=== PATIENT | female | born 1980 | race Caucasian/White ===

== ENCOUNTER 2017-10-01 14:03 | Emergency (ER) | payer SELFPAY ==
--- NOTE | 2017-10-01 18:37 | ER ---
Nurse's Notes [facility] Name: Cristina Hancock Age: 37 yrs Sex: Female : 1980 Arrival Date: 10/01/2017 Time: 14:12 Bed 12 Private MD: Diagnosis: Low back pain Presentation: 10/01 14:23 Presenting complaint: Patient states: i was in bed and my back started hurting for a hj week now; the pain moves to my R leg; denies nausea and vomiting and denies fever and chills;. Transition of care: patient was not received from another setting of care. Onset of symptoms was October 01, 2017. Care prior to arrival: None. 14:23 Method Of Arrival: Ambulatory hj 14:23 Acuity: HALEIGH 4 hj Triage Assessment: 14:25 General: Appears in no apparent distress. uncomfortable, Behavior is calm, cooperative, hj appropriate for age. Pain: Complains of pain in left low back and right low back. Musculoskeletal: Circulation, motion, and sensation intact. 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 - Family history:: not pertinent. - Social history:: Smoking status: Patient/guardian denies using tobacco. - Hospitalizations: : No recent hospitalization is reported. - History obtained from: . Screenin:44 Abuse screen: Denies threats or abuse. Denies injuries from another. Nutritional hj screening: No deficits noted. Tuberculosis screening: No symptoms or risk factors identified. Fall Risk None identified. Assessment: 18:20 General: Appears in no apparent distress. comfortable, Behavior is calm, cooperative. iw Neuro: Level of Consciousness is awake, alert, obeys commands, Oriented to person, place, time, situation. Cardiovascular: Patient's skin is warm and dry. Respiratory: Respiratory effort is even, unlabored. Derm: Skin is pink, warm \T\ dry. normal. Musculoskeletal: Range of motion: intact in all extremities. Vital Signs: 14:25 BP 115 / 90; Pulse 94; Resp 18; Temp 98.6(TE); Pulse Ox 100% on R/A; Weight 127.01 kg; hj Height 5 ft. 9 in. (175.26 cm); Pain 9/10; 14:25 Body Mass Index 41.35 (127.01 kg, 175.26 cm) hj ED Course: 14:12 Patient arrived in ED. mr 14:24 Triage completed. hj 14:25 Arm band placed on right wrist. hj 16:24 Sarah Mata FNP is PHCP. kav 16:24 Patric Lyman MD is Attending Physician. kav 17:46 Nora Card, LUÍS is Primary Nurse. iw 18:44 Patient has correct armband on for positive identification. Placed in gown. Bed in low hj position. Call light in reach. 18:45 No provider procedures requiring assistance completed. Patient did not have IV access hj during this emergency room visit. Administered Medications: 18:34 Drug: Cyclobenzaprine 10 mg Route: PO; iw 18:45 Follow up: Response: No adverse reaction hj Outcome: 18:37 Discharge ordered by . kav 18:45 Discharged to home ambulatory. hj 18:45 Condition: stable 18:45 Discharge instructions given to patient, Instructed on discharge instructions, follow up and referral plans. medication usage, Demonstrated understanding of instructions, follow-up care, medications, Prescriptions given X 1. 18:45 Patient left the ED. hj Signatures: Sarah Mata FNP FNP kav Rivera, Maria Nora Card, RN RN iw Franki Hill RN RN hj Corrections: (The following items were deleted from the chart) 14:28 14:25 Pulse 94bpm; Resp 18bpm; Pulse Ox 100% RA; Temp 98.6F Temporal; 127.01 kg; Height hj 5 ft. 9 in.; BMI: 41.3; Pain 9/10; hj
--- NOTE | 2017-10-01 18:38 | EDPHYS ---
Physician Documentation [facility] Name: Cristina Hancock Age: 37 yrs Sex: Female : 1980 Arrival Date: 10/01/2017 Time: 14:12 Bed 12 Private MD: ED Physician Patric Lyman HPI: 10/01 16:24 This 37 yrs old Female presents to ER via Ambulatory with complaints of Back kav Pain. 18:33 The patient presents with pain that is acute. The symptoms are located in the low back. kav Onset: The symptoms/episode began/occurred acutely. The pain does not radiate. Associated signs and symptoms: The patient has no apparent associated signs or symptoms. The problem was sustained when lifting. Modifying factors: The patient symptoms are alleviated by nothing, the patient symptoms are aggravated by any movement, walking. Severity of symptoms: At their worst the symptoms were moderate, just prior to arrival. The patient has not experienced similar symptoms in the past. 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 - Family history:: not pertinent. - Social history:: Smoking status: Patient/guardian denies using tobacco. - Hospitalizations: : No recent hospitalization is reported. - History obtained from: . ROS: 18:34 Constitutional: Negative for fever, chills, and weight loss, Eyes: Negative for injury, kav pain, redness, and discharge, ENT: Negative for injury, pain, and discharge, Neck: Negative for injury, pain, and swelling, Cardiovascular: Negative for chest pain, palpitations, and edema, Respiratory: Negative for shortness of breath, cough, wheezing, and pleuritic chest pain, Abdomen/GI: Negative for abdominal pain, nausea, vomiting, diarrhea, and constipation, : Negative for injury, bleeding, discharge, and swelling, MS/Extremity: Negative for injury and deformity, Skin: Negative for injury, rash, and discoloration, Neuro: Negative for headache, weakness, numbness, tingling, and seizure, Psych: Negative for depression, anxiety, suicide ideation, homicidal ideation, and hallucinations, Allergy/Immunology: Negative for hives, rash, and allergies, Endocrine: Negative for neck swelling, polydipsia, polyuria, polyphagia, and marked weight changes, Hematologic/Lymphatic: Negative for swollen nodes, abnormal bleeding, and unusual bruising. 18:34 Back: Positive for pain at rest, pain with movement, radiated pain. Exam: 18:34 Constitutional: This is a well developed, well nourished patient who is awake, alert, kav and in no acute distress. Head/Face: Normocephalic, atraumatic. Eyes: Pupils equal round and reactive to light, extra-ocular motions intact. Lids and lashes normal. Conjunctiva and sclera are non-icteric and not injected. Cornea within normal limits. Periorbital areas with no swelling, redness, or edema. ENT: Nares patent. No nasal discharge, no septal abnormalities noted. Tympanic membranes are normal and external auditory canals are clear. Oropharynx with no redness, swelling, or masses, exudates, or evidence of obstruction, uvula midline. Mucous membranes moist. Neck: Trachea midline, no thyromegaly or masses palpated, and no cervical lymphadenopathy. Supple, full range of motion without nuchal rigidity, or vertebral point tenderness. No Meningismus. Chest/axilla: Normal chest wall appearance and motion. Nontender with no deformity. No lesions are appreciated. Cardiovascular: Regular rate and rhythm with a normal S1 and S2. No gallops, murmurs, or rubs. Normal PMI, no JVD. No pulse deficits. Respiratory: Lungs have equal breath sounds bilaterally, clear to auscultation and percussion. No rales, rhonchi or wheezes noted. No increased work of breathing, no retractions or nasal flaring. Abdomen/GI: Soft, non-tender, with normal bowel sounds. No distension or tympany. No guarding or rebound. No evidence of tenderness throughout. Skin: Warm, dry with normal turgor. Normal color with no rashes, no lesions, and no evidence of cellulitis. MS/ Extremity: Pulses equal, no cyanosis. Neurovascular intact. Full, normal range of motion. Neuro: Awake and alert, GCS 15, oriented to person, place, time, and situation. Cranial nerves II-XII grossly intact. Motor strength 5/5 in all extremities. Sensory grossly intact. Cerebellar exam normal. Normal gait. Psych: Awake, alert, with orientation to person, place and time. Behavior, mood, and affect are within normal limits. 18:34 Back: pain, that is moderate, ROM is painful, decreased, with extension, normal spinal alignment noted, CVA tenderness, is absent, muscle spasm, is not present, Straight leg raises: of both lower extremities does not illicit pain. Vital Signs: 14:25 BP 115 / 90; Pulse 94; Resp 18; Temp 98.6(TE); Pulse Ox 100% on R/A; Weight 127.01 kg; hj Height 5 ft. 9 in. (175.26 cm); Pain 9/10; 14:25 Body Mass Index 41.35 (127.01 kg, 175.26 cm) hj MDM: 16:25 Patient medically screened. ka 18:34 Data reviewed: vital signs, nurses notes. kav Administered Medications: 18:34 Drug: Cyclobenzaprine 10 mg Route: PO; 18:45 Follow up: Response: No adverse reaction Disposition: 10/02 14:51 Co-signature as Attending Physician, Patric Lyman MD I agree with the assessment and [facility] plan of care. Disposition: 10/01/17 18:37 Discharged to Home. Impression: Low back pain. - Condition is Stable. - Discharge Instructions: Back Injury Prevention, [id number], Back Pain, Adult, [id number], Back Exercises, [id number], Heat Therapy. - Prescriptions for Cyclobenzaprine 10 mg Oral Tablet - take 1 tablet by ORAL route every 8 hours As needed; 30 tablet. - Medication Reconciliation Form, Thank You Letter, Antibiotic Education, Prescription Opioid Use form. - Follow up: Private Physician; When: 1 - 2 days; Reason: If symptoms return. - Problem is new. - Symptoms have improved. Signatures: Patric Lyman MD MD cha Vern, Katherine, FOSTER WINDER FOSTER WINDER Nora Montes RN RN Sergio, Franki, RN RN hj
[2017-10-01] MEDS ORDERED: CYCLOBENZAPRINE 10 MG TAB ONE (18:52)
== END 2017-10-01 18:45 | disposition home or self-care (01) ==
LOC: ER 14:03
DX: Z88.2 Allergy status to sulfonamides; Z88.6 Allergy status to analgesic agent; M54.5 Low back pain
CPT/HCPCS: 99283

== ENCOUNTER 2017-11-21 17:25 | Emergency (ER) | payer BC, SELFPAY ==
[2017-11-21] MEDS ORDERED: CIPROFLOXACIN HCL 500 MG TAB ONE (18:15)
[2017-11-21] MEDS ORDERED: PHENAZOPYRIDINE 100MG TAB PO ONE (18:15)
[2017-11-21] MEDS ORDERED: NITROFURAN MACRO 100 MG CAP PO ONE (18:15)
[2017-11-21 18:35] LABS: Urine Blood NEGATIVE (NEG); Urine Glucose NEGATIVE (NEG); Urine Protein NEGATIVE (NEG); Urine Specific Gravity 1.015 (1.005-1.030); Urine pH 7.5 (5.0-7.0)
[2017-11-21 19:06] LABS: Urine Bacteria >50 /HPF (<20); Urine RBC <5 /HPF (NONE SEEN)
[2017-11-21 19:07] LABS: Urine Culture Reflex Order NOT NEEDED
--- NOTE | 2017-11-21 19:22 | ER ---
Nurse's Notes [facility] Name: Cristina Hancock Age: 37 yrs Sex: Female : 1980 Arrival Date: 11/21/2017 Time: 17:29 Bed 24 Private MD: Diagnosis: Urinary tract infection, site not specified Presentation: 11/21 17:33 Presenting complaint: Patient states: urinary frequency, lower back pain, and pain with la1 intercourse. Transition of care: patient was not received from another setting of care. Onset of symptoms was November 21, 2017. Initial Sepsis Screen: Does the patient meet any 2 criteria? No. Patient's initial sepsis screen is negative. Does the patient have a suspected source of infection? No. Patient's initial sepsis screen is negative. Care prior to arrival: None. 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 - Social history:: Smoking status: Patient/guardian denies using tobacco. Screenin:39 Abuse screen: Denies threats or abuse. Nutritional screening: No deficits noted. tl3 Tuberculosis screening: No symptoms or risk factors identified. Fall Risk None identified. Assessment: 17:39 General: Appears distressed, uncomfortable, obese, well groomed, well developed, well tl3 nourished, Behavior is cooperative, appropriate for age, listless. Pain: Complains of pain in right flank, superpubic area, vaginal. Neuro: Level of Consciousness is awake, alert, obeys commands, Oriented to person, place, time, situation, Appropriate for age. Cardiovascular: Heart tones S1 S2 present. Respiratory: Airway is patent Trachea midline Respiratory effort is even, unlabored, Respiratory pattern is regular, symmetrical. GI: Bowel sounds present X 4 quads. Abd is soft and non tender. : Reports discharge, urgency, urinary frequency, vaginal pain. EENT: No signs and/or symptoms were reported regarding the EENT system. Derm: No signs and/or symptoms reported regarding the dermatologic system. Musculoskeletal: No signs and/or symptoms reported regarding the musculoskeletal system. 18:45 Reassessment: Patient appears in no apparent distress at this time. No changes from tl3 previously documented assessment. Patient and/or family updated on plan of care and expected duration. Pain level reassessed. Patient is alert, oriented x 3, equal unlabored respirations, skin warm/dry/pink. Vital Signs: 17:34 BP 123 / 91; Pulse 87; Resp 19; Temp 97.4; Pulse Ox 100% on R/A; Weight 127.01 kg; la1 Height 5 ft. 9 in. (175.26 cm); 18:45 BP 122 / 86; Pulse 75; Resp 18; Pulse Ox 99% on R/A; tl3 17:34 Body Mass Index 41.35 (127.01 kg, 175.26 cm) la1 ED Course: 17:29 Patient arrived in ED. rg4 17:33 Triage completed. la1 17:34 Arm band placed on left wrist. la1 17:39 Crystal Travis, RN is Primary Nurse. tl3 17:39 Appears restless. Awaiting ED provider evaluation. tl3 17:39 Patient has correct armband on for positive identification. Placed in gown. Bed in low tl3 position. Call light in reach. Side rails up X 1. Warm blanket given. 17:44 Gwen Rios FNP-C is PHCP. snw 17:44 Patric Lyman MD is Attending Physician. snw 18:45 No provider procedures requiring assistance completed. Patient did not have IV access tl3 during this emergency room visit. Administered Medications: 18:16 Drug: Cipro 500 mg Route: PO; tl3 19:54 Follow up: Response: No adverse reaction tl3 18:17 Drug: Pyridium 200 mg Route: PO; tl3 19:55 Follow up: Response: No adverse reaction tl3 18:17 Drug: Macrobid 100 mg Route: PO; tl3 19:55 Follow up: Response: No adverse reaction tl3 Outcome: 18:45 Discharged to home ambulatory. tl3 18:45 Condition: stable 18:45 Discharge instructions given to patient, Instructed on discharge instructions, follow up and referral plans. medication usage, Demonstrated understanding of instructions, follow-up care, medications, Prescriptions given X 4. 19:21 Discharge ordered by . vincent 19:57 Patient left the ED. tl3 Signatures: Gwen Rios, PROJECT CONTROL OFFICER-C PROJECT CONTROL OFFICER-Csnw Jason Ge RN RN carl1 Azalia Castillo rg4 Crystal Travis RN RN tl3 Corrections: (The following items were deleted from the chart) 18:11 18:10 Home Meds: Hydrochlorothiazide Oral [Inactive]; tl3 tl3 18:11 18:10 Home Meds: Tylenol #3 Oral [Inactive]; tl3 tl3
--- NOTE | 2017-11-21 19:22 | EDPHYS ---
Physician Documentation [facility] Name: Cristina Hancock Age: 37 yrs Sex: Female : 1980 Arrival Date: 11/21/2017 Time: 17:29 Bed 24 Private MD: ED Physician Patric Lyman HPI: 11/21 19:54 This 37 yrs old Female presents to ER via Ambulatory with complaints of snw Abdominal Pain, Low Back Pain. 19:54 The patient presents with abdominal pain suprapubic. Onset: The symptoms/episode snw began/occurred suddenly, last night. The symptoms do not radiate. The symptoms are described as constant. Modifying factors: The symptoms are alleviated by nothing, the symptoms are aggravated by pressure, touching the area. Severity of pain: At its worst the pain was moderate severe. It is unknown whether or not the patient has had similar symptoms in the past. It is unknown whether or not the patient has recently seen a physician. denies fever, discharge. 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 - Social history:: Smoking status: Patient/guardian denies using tobacco. ROS: 19:53 Constitutional: Negative for fever, chills, and weight loss, Eyes: Negative for injury, snw pain, redness, and discharge, ENT: Negative for injury, pain, and discharge, Neck: Negative for injury, pain, and swelling, Cardiovascular: Negative for chest pain, palpitations, and edema, Respiratory: Negative for shortness of breath, cough, wheezing, and pleuritic chest pain, Abdomen/GI: Negative for abdominal pain, nausea, vomiting, diarrhea, and constipation, Back: Negative for injury and pain, : Negative for injury, bleeding, discharge, and swelling, + burning on urination, painful intercourse, suprapubic pain MS/Extremity: Negative for injury and deformity, Skin: Negative for injury, rash, and discoloration, Neuro: Negative for headache, weakness, numbness, tingling, and seizure. Exam: 19:50 Constitutional: This is a well developed, well nourished patient who is awake, alert, snw and in no acute distress. Head/Face: Normocephalic, atraumatic. Eyes: Pupils equal round and reactive to light, extra-ocular motions intact. Lids and lashes normal. Conjunctiva and sclera are non-icteric and not injected. Cornea within normal limits. Periorbital areas with no swelling, redness, or edema. ENT: Nares patent. No nasal discharge, no septal abnormalities noted. Tympanic membranes are normal and external auditory canals are clear. Oropharynx with no redness, swelling, or masses, exudates, or evidence of obstruction, uvula midline. Mucous membranes moist. Neck: Trachea midline, no thyromegaly or masses palpated, and no cervical lymphadenopathy. Supple, full range of motion without nuchal rigidity, or vertebral point tenderness. No Meningismus. Chest/axilla: Normal chest wall appearance and motion. Nontender with no deformity. No lesions are appreciated. Cardiovascular: Regular rate and rhythm with a normal S1 and S2. No gallops, murmurs, or rubs. Normal PMI, no JVD. No pulse deficits. Respiratory: Lungs have equal breath sounds bilaterally, clear to auscultation and percussion. No rales, rhonchi or wheezes noted. No increased work of breathing, no retractions or nasal flaring. Back: No spinal tenderness. No costovertebral tenderness. Full range of motion. Skin: Warm, dry with normal turgor. Normal color with no rashes, no lesions, and no evidence of cellulitis. MS/ Extremity: Pulses equal, no cyanosis. Neurovascular intact. Full, normal range of motion. Neuro: Awake and alert, GCS 15, oriented to person, place, time, and situation. Cranial nerves II-XII grossly intact. Motor strength 5/5 in all extremities. Sensory grossly intact. Cerebellar exam normal. Normal gait. 19:50 Abdomen/GI: Inspection: abdomen appears normal, Bowel sounds: normal, Palpation: mild abdominal tenderness, in the suprapubic area. Vital Signs: 17:34 BP 123 / 91; Pulse 87; Resp 19; Temp 97.4; Pulse Ox 100% on R/A; Weight 127.01 kg; la1 Height 5 ft. 9 in. (175.26 cm); 18:45 BP 122 / 86; Pulse 75; Resp 18; Pulse Ox 99% on R/A; tl3 17:34 Body Mass Index 41.35 (127.01 kg, 175.26 cm) la1 MDM: 17:44 Patient medically screened. snw 19:42 Data reviewed: vital signs, nurses notes. Data interpreted: Pulse oximetry: on room air snw is 100 %. Interpretation: normal. Counseling: I had a detailed discussion with the patient and/or guardian regarding: the historical points, exam findings, and any diagnostic results supporting the discharge/admit diagnosis, the presence of at least one elevated blood pressure reading (>120/80) during this emergency department visit, lab results, the need for outpatient follow up, to return to the emergency department if symptoms worsen or persist or if there are any questions or concerns that arise at home. Special discussion: Based on the patient's Hx, exam, and Dx evaluation, there is no indication for emergent surgery or inpatient Tx. It is understood by the patient/guardian that if the Sx's persist or worsen they need to return immediately for re-evaluation. Based on the history and exam findings, there is no indication for further emergent testing or inpatient evaluation. I discussed with the patient/guardian the need to see the OB Gyne specialist for further evaluation of the symptoms. I discussed with the patient/guardian the need to see the primary care provider for further evaluation of the symptoms. 11/21 17:45 Order name: Urine Culture snw 11/21 17:45 Order name: Urine Microscopic Only; Complete Time: 19:21 snw 11/21 18:02 Order name: Urine Dipstick--Ancillary (enter results); Complete Time: 18:35 ag 11/21 17:45 Order name: Urine Dipstick-Ancillary (obtain specimen); Complete Time: 18:12 snw Administered Medications: 18:16 Drug: Cipro 500 mg Route: PO; tl3 19:54 Follow up: Response: No adverse reaction tl3 18:17 Drug: Pyridium 200 mg Route: PO; tl3 19:55 Follow up: Response: No adverse reaction tl3 18:17 Drug: Macrobid 100 mg Route: PO; tl3 19:55 Follow up: Response: No adverse reaction tl3 Disposition: 11/21/17 19:21 Discharged to Home. Impression: Urinary tract infection, site not specified. - Condition is Stable. - Discharge Instructions: Urinary Tract Infection. - Prescriptions for Macrobid 100 mg Oral Capsule - take 1 capsule by ORAL route every 12 hours for 10 days; 20 capsule. Cipro 500 mg Oral Tablet - take 1 tablet by ORAL route every 12 hours for 7 days; 14 tablet. - Medication Reconciliation Form, Thank You Letter, Antibiotic Education, Prescription Opioid Use form. - Follow up: Private Physician; When: 2 - 3 days; Reason: Recheck today's complaints, Continuance of care, Re-evaluation by your physician. Follow up: Emergency Department; When: As needed; Reason: Worsening of condition. Addendum: 11/23/2017 09:07 Co-signature as Attending Physician, Patric Lyman MD I agree with the assessment and [facility] plan of care. Signatures: Dispatcher [employer] Patric Marie MD MD cha Therrien, Shelly, PRESS PULLER-C PRESS PULLER-Csnw Jason Ge RN RN la1 Crystal Travis, LUÍS RN tl3 Corrections: (The following items were deleted from the chart) 11/21 18:11 18:10 Home Meds: Hydrochlorothiazide Oral [Inactive]; tl3 tl3 18:11 18:10 Home Meds: Tylenol #3 Oral [Inactive]; tl3 tl3 18:12 17:45 Urine Test ordered. snw tl3 19:57 19:21 11/21/2017 19:21 Discharged to Home. Impression: Urinary tract infection, site tl3 not specified. Condition is Stable. Forms are Medication Reconciliation Form, Thank You Letter, Antibiotic Education, Prescription Opioid Use. Follow up: Private Physician; When: 2 - 3 days; Reason: Recheck today's complaints, Continuance of care, Re-evaluation by your physician. Follow up: Emergency Department; When: As needed; Reason: Worsening of condition. snw
== END 2017-11-21 19:57 | disposition home or self-care (01) ==
LOC: ER 17:25
DX: N39.0 Urinary tract infection, site not specified (principal); I10 Essential (primary) hypertension; Z88.2 Allergy status to sulfonamides; Z88.6 Allergy status to analgesic agent; Z88.8 Allergy status to other drugs, medicaments and biological substances; Z91.048 Other nonmedicinal substance allergy status
CPT/HCPCS: 81003; 81015; 87086; 87088; 99283

== ENCOUNTER 2018-01-31 17:19 | Emergency (ER) | payer SELFPAY ==
[2018-01-31] MEDS ORDERED: HYDROCODONE/APAP 5/325 MG TAB ONE (17:37)
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
[2018-01-31] MEDS ORDERED: CYCLOBENZAPRINE 10 MG TAB ONE (19:06)
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
== END 2018-01-31 20:05 | disposition home or self-care (01) ==
LOC: ER 17:19
DX: S13.4XXA Sprain of ligaments of cervical spine, initial encounter (principal); S33.5XXA Sprain of ligaments of lumbar spine, initial encounter; V49.59XA Passenger injured in collision with other motor vehicles in traffic accident, initial encounter; Z88.2 Allergy status to sulfonamides; Z88.5 Allergy status to narcotic agent; Z88.6 Allergy status to analgesic agent; Z88.8 Allergy status to other drugs, medicaments and biological substances; Z91.048 Other nonmedicinal substance allergy status; I10 Essential (primary) hypertension
CPT/HCPCS: 70450; 72100; 72125; 99284

== ENCOUNTER 2018-02-13 19:33 | Emergency (ER) | payer SELFPAY ==
--- NOTE | 2018-02-13 21:09 | RAD REPORT ---
EXAM DESCRIPTION: VAS - Extrem Venous W Compress [place] - 02/13/2018 9:03 pm CLINICAL HISTORY: Pain;Swelling Bilateral leg edema and swelling. COMPARISON: No comparisons TECHNIQUE: Real-time sonographic interrogation of the left and right lower extremity deep venous sys tems was performed. FINDINGS: Normal compressibility, flow augmentation, phasic flow and spontaneous flow is identified in both the left and right lower extremity deep venous systems. IMPRESSION: No sonographic evidence of left or right lower extremity deep venous thrombosis.
--- NOTE | 2018-02-13 21:51 | RAD REPORT ---
EXAM DESCRIPTION: VAS - Lower Extremity Arterial Bilat - 02/13/2018 9:38 pm CLINICAL HISTORY: PAIN COMPARISON: None Claudication. TECHNIQUE: Bilateral lower extremity arterial Doppler examination was performed with favian bashir FINDINGS: Symmetric brachial pressure measurements are noted. Triphasic waveforms are seen throughout both lower extremity arterial systems to the level of the shakira salis pedis arteries. No stenosis or occlusion is identified. IMPRESSION: No evidence of significant peripheral vascular disease.
[2018-02-13] MEDS ORDERED: HYDROCODONE/APAP 10/325 TAB ONE (22:19)
--- NOTE | 2018-02-13 22:20 | ER ---
Nurse's Notes [facility] Name: Cristina Hancock Age: 37 yrs Sex: Female : 1980 Arrival Date: 02/13/2018 Time: 19:36 Bed 7 Private MD: None, None Diagnosis: Edema, unspecified Presentation: 02/13 19:49 Presenting complaint: Patient states: "My feet are swollen really bad and I have a knot aj1 on my right ankle. I have pain that shoots from my legs all the way from my ankles to my feet. I've had a DVT before so I just want to make sure that I don't have that." Reports swelling and pain to bilateral legs. States that this has happened before, but her pain has never been this bad before. Transition of care: patient was not received from another setting of care. Onset of symptoms was February 10, 2018. Risk Assessment: Do you want to hurt yourself or someone else? Patient reports no desire to harm self or others. Initial Sepsis Screen: Does the patient meet any 2 criteria? No. Patient's initial sepsis screen is negative. Does the patient have a suspected source of infection? No. Patient's initial sepsis screen is negative. Care prior to arrival: None. 19:49 Method Of Arrival: Ambulatory aj1 19:49 Acuity: [place] 3 aj1 Triage Assessment: 19:52 General: Appears in no apparent distress. uncomfortable, Behavior is calm, cooperative, aj1 appropriate for age. Pain: Complains of pain in right leg and left leg Pain currently is 9 out of 10 on a pain scale. Neuro: Level of Consciousness is awake, alert, obeys commands. Cardiovascular: Patient's skin is warm and dry. Respiratory: Airway is patent Respiratory effort is even, unlabored, Respiratory pattern is regular, symmetrical. Musculoskeletal: Swelling present in right leg and left leg. 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 - Social history:: Smoking status: Patient/guardian denies using tobacco. - Ebola Screening: : Patient denies travel to an Ebola-affected area in the 21 days before illness onset. - Family history:: not pertinent. - Hospitalizations: : No recent hospitalization is reported. Screenin:49 Abuse screen: Denies threats or abuse. Denies injuries from another. Nutritional lp1 screening: No deficits noted. Tuberculosis screening: No symptoms or risk factors identified. Fall Risk None identified. Assessment: 20:45 General: Appears uncomfortable, Behavior is appropriate for age. Pain: Complains of lp1 pain in right ankle Pain currently is 9 out of 10 on a pain scale. Quality of pain is described as sharp, Pain began 2-3 days ago. Aggravated by increased activity. Neuro: Level of Consciousness is awake, alert, obeys commands. Cardiovascular: Patient's skin is warm and dry. Respiratory: Respiratory effort is even, unlabored. GI: No signs and/or symptoms were reported involving the gastrointestinal system. : No signs and/or symptoms were reported regarding the genitourinary system. EENT: No signs and/or symptoms were reported regarding the EENT system. Derm: Skin is pink, warm \\T\\ dry. Musculoskeletal: Range of motion: intact in all extremities. 20:49 Reassessment: Ultrasound at bedside. lp1 22:09 Reassessment: Patient appears in no apparent distress at this time. Patient and/or aa1 family updated on plan of care and expected duration. Pain level reassessed. Patient is alert, oriented x 3, equal unlabored respirations, skin warm/dry/pink. Awaiting provider reassessment. 22:37 Reassessment: Patient appears in no apparent distress at this time. Patient is alert, aa1 oriented x 3, equal unlabored respirations, skin warm/dry/pink. Discussed d/c \\T\\ f/u instructions with pt; denies questions or concerns at this time. Vital Signs: 19:52 BP 122 / 93; Pulse 96; Resp 18; Temp 98.4(TE); Pulse Ox 100% on R/A; aj1 19:54 Weight 142.88 kg; aj1 20:39 BP 128 / 75 LA Sitting (auto/reg); Pulse 82 LA; Resp 18 S; Pulse Ox 100% on R/A; rg2 22:09 BP 117 / 89; Pulse 81; Resp 18; Pulse Ox 100% on R/A; aa1 ED Course: 19:36 Patient arrived in ED. mr 19:36 None, None is Private Physician. mr 19:51 Triage completed. aj1 19:52 Arm band placed on. aj1 20:36 Ariadna Goddard, LUÍS is Primary Nurse. aa1 20:38 Ezequiel Hilario MD is Attending Physician. rn 21:00 Patient has correct armband on for positive identification. Bed in low position. Call aa1 light in reach. Pulse ox on. NIBP on. 21:01 Extrem Venous W Compression [place] US In Process Unspecified. EDMS 21:01 Ultrasound completed. Patient tolerated well. sg3 21:38 Lower Extremity Arterial Bilat US In Process Unspecified. EDMS 22:39 No provider procedures requiring assistance completed. Patient did not have IV access aa1 during this emergency room visit. Administered Medications: 22:17 Drug: [place] 10 mg-325 mg 1 tabs Route: PO; aa1 22:37 Follow up: Response: No adverse reaction; Medication administered at discharge. aa1 Outcome: 22:19 Discharge ordered by . rn 22:39 Discharged to home ambulatory, with friend. aa1 22:39 Condition: good 22:39 Discharge instructions given to patient, Instructed on discharge instructions, follow up and referral plans. medication usage, Demonstrated understanding of instructions, follow-up care, medications. 22:39 Patient left the ED. aa1 Signatures: Dispatcher [employer] EDMS Yakov De La Torre rg2 nAa Garcias, RN RN aj1 Ariadna Goddard, RN RN aa1 Anabella Ybarra mr Ezequiel Hilario MD MD rn Pena, Laura, RN RN ada1 Leslie Falcon sg3
--- NOTE | 2018-02-13 22:20 | EDPHYS ---
Physician Documentation [facility] Name: Cristina Hancock Age: 37 yrs Sex: Female : 1980 Arrival Date: 02/13/2018 Time: 19:36 Bed 7 Private MD: None, None ED Physician Ezequiel Hilario HPI: 02/13 22:16 This 37 yrs old Female presents to ER via Ambulatory with complaints of Ankle rn Swelling. 22:16 The patient presents with pain, swelling. The complaints affect the left ankle, right rn ankle. Onset: The symptoms/episode began/occurred at an unknown time. Associated signs and symptoms: Pertinent negatives: fever, rash, weakness. Severity of symptoms: At their worst the symptoms were mild, in the emergency department the symptoms are unchanged. The patient has experienced similar episodes in the past, chronically. Reports swelling for weeks/months, both legs, + hx of dvt, no blood thinners, denies trauma, reports pain worse over last 2 days. . 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 - Social history:: Smoking status: Patient/guardian denies using tobacco. - Ebola Screening: : Patient denies travel to an Ebola-affected area in the 21 days before illness onset. - Family history:: not pertinent. - Hospitalizations: : No recent hospitalization is reported. ROS: 22:16 Constitutional: Negative for fever, chills, and weight loss, Eyes: Negative for injury, rn pain, redness, and discharge, Cardiovascular: Negative for chest pain, palpitations Respiratory: Negative for shortness of breath, cough, wheezing, and pleuritic chest pain, Abdomen/GI: Negative for abdominal pain, nausea, vomiting, diarrhea, and constipation, MS/Extremity: Negative for injury and deformity, + swelling of bilateral ankles Skin: Negative for injury, rash, and discoloration, Neuro: Negative for headache, weakness, numbness, tingling, and seizure. Exam: 22:16 Constitutional: This is a well developed, well nourished patient who is awake, alert, rn and in no acute distress. Head/Face: Normocephalic, atraumatic. Eyes: Pupils equal round and reactive to light, extra-ocular motions intact. Lids and lashes normal. Conjunctiva and sclera are non-icteric and not injected. Cornea within normal limits. Periorbital areas with no swelling, redness, or edema. Cardiovascular: Regular rate and rhythm with a normal S1 and S2. No gallops, murmurs, or rubs. Normal PMI, no JVD. No pulse deficits. Respiratory: Lungs have equal breath sounds bilaterally, clear to auscultation and percussion. No rales, rhonchi or wheezes noted. No increased work of breathing, no retractions or nasal flaring. Skin: Warm, dry with normal turgor. Normal color with no rashes, no lesions, and no evidence of cellulitis. MS/ Extremity: Pulses equal but diminished bilateral distal pulses, no skin changes, + mild edema/swelling about bilateral ankles, no signs of cellulitis Neuro: Awake and alert, GCS 15, oriented to person, place, time, and situation. Cranial nerves II-XII grossly intact. Motor strength 5/5 in all extremities. Sensory grossly intact. Cerebellar exam normal. Normal gait. Vital Signs: 19:52 BP 122 / 93; Pulse 96; Resp 18; Temp 98.4(TE); Pulse Ox 100% on R/A; aj1 19:54 Weight 142.88 kg; aj1 20:39 BP 128 / 75 LA Sitting (auto/reg); Pulse 82 LA; Resp 18 S; Pulse Ox 100% on R/A; rg2 22:09 BP 117 / 89; Pulse 81; Resp 18; Pulse Ox 100% on R/A; aa1 MDM: 20:38 Patient medically screened. rn 22:16 Differential diagnosis: dependant edema, arterial insufficiency, venous insufficiency, rn DVT. Data reviewed: vital signs, nurses notes, radiologic studies, and as a result, I will discharge patient. Counseling: I had a detailed discussion with the patient and/or guardian regarding: the historical points, exam findings, and any diagnostic results supporting the discharge/admit diagnosis, radiology results, the need for outpatient follow up, to return to the emergency department if symptoms worsen or persist or if there are any questions or concerns that arise at home. Special discussion: I discussed with the patient/guardian in detail that at this point there is no indication for admission to the hospital. It is understood, however, that if the symptoms persist or worsen the patient needs to return immediately for re-evaluation. 02/13 20:28 Order name: Extrem Venous W Compression [place] US; Complete Time: 22:13 rn 02/13 20:45 Order name: Lower Extremity Arterial Bilat US; Complete Time: 22:13 rn Administered Medications: 22:17 Drug: Hillman 10 mg-325 mg 1 tabs Route: PO; aa1 22:37 Follow up: Response: No adverse reaction; Medication administered at discharge. aa1 Disposition: 02/13/18 22:19 Discharged to Home. Impression: Edema, unspecified. - Condition is Stable. - Discharge Instructions: Edema, Peripheral Edema. - Medication Reconciliation Form, Thank You Letter, Antibiotic Education, Prescription Opioid Use form. - Follow up: Private Physician; When: As needed; Reason: Recheck today's complaints, Re-evaluation by your physician. - Problem is an ongoing problem. - Symptoms have improved. Signatures: Dispatcher [employer] EDAna Robertson RN RN aj1 Ariadna Goddard RN RN aa1 Ezequiel Hilario MD MD government program manager: (The following items were deleted from the chart) 22:39 22:19 02/13/2018 22:19 Discharged to Home. Impression: Edema, unspecified. Condition is aa1 Stable. Forms are Medication Reconciliation Form, Thank You Letter, Antibiotic Education, Prescription Opioid Use. Follow up: Private Physician; When: As needed; Reason: Recheck today's complaints, Re-evaluation by your physician. Problem is an ongoing problem. Symptoms have improved. rn
== END 2018-02-13 22:39 | disposition home or self-care (01) ==
LOC: ER 19:33
DX: M25.472 Effusion, left ankle (principal); Z88.2 Allergy status to sulfonamides; Z88.6 Allergy status to analgesic agent
CPT/HCPCS: 93925; 93970; 99283

== ENCOUNTER 2018-03-12 19:27 | Emergency (ER) | payer SELFPAY ==
--- NOTE | 2018-03-12 20:23 | EDPHYS ---
Physician Documentation [facility] Name: Cristina Hancock Age: 38 yrs Sex: Female : 1980 Arrival Date: 03/12/2018 Time: 19:29 Bed 23 Private MD: ED Physician Matthieu Harris HPI: 03/12 19:51 This 38 yrs old Female presents to ER via Ambulatory with complaints of Fall jr8 Injury, Ankle Injury. 19:51 Details of fall: The patient fell from an upright position, while standing, while jr8 walking. Onset: The symptoms/episode began/occurred acutely, today. Associated injuries: The patient sustained left ankle and foot. Severity of symptoms: At their worst the symptoms were mild, in the emergency department the symptoms are unchanged. It is unknown whether or not the patient has had similar symptoms in the past. It is unknown whether or not the patient has recently seen a physician. Stated that she was walking and mis-stepped. Pain to foot and ankle on left side . 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 - Social history:: Smoking status: Patient/guardian denies using tobacco. - Ebola Screening: : Patient negative for fever greater than or equal to 101.5 degrees Fahrenheit, and additional compatible Ebola Virus Disease symptoms Patient denies exposure to infectious person Patient denies travel to an Ebola-affected area in the 21 days before illness onset No symptoms or risks identified at this time. ROS: 19:51 Eyes: Negative for injury, pain, redness, and discharge, ENT: Negative for injury, jr8 pain, and discharge, Neck: Negative for injury, pain, and swelling, Cardiovascular: Negative for chest pain, palpitations, and edema, Respiratory: Negative for shortness of breath, cough, wheezing, and pleuritic chest pain, Abdomen/GI: Negative for abdominal pain, nausea, vomiting, diarrhea, and constipation, Back: Negative for injury and pain, Skin: Negative for injury, rash, and discoloration, Neuro: Negative for headache, weakness, numbness, tingling, and seizure. 19:51 MS/extremity: Positive for decreased range of motion, pain, tenderness, of the left dorsal foot and ankle. Exam: 19:51 Cardiovascular: Regular rate and rhythm with a normal S1 and S2. No gallops, murmurs, jr8 or rubs. Normal PMI, no JVD. No pulse deficits. Respiratory: Lungs have equal breath sounds bilaterally, clear to auscultation and percussion. No rales, rhonchi or wheezes noted. No increased work of breathing, no retractions or nasal flaring. Skin: Warm, dry with normal turgor. Normal color with no rashes, no lesions, and no evidence of cellulitis. Neuro: Awake and alert, GCS 15, oriented to person, place, time, and situation. Cranial nerves II-XII grossly intact. Motor strength 5/5 in all extremities. Sensory grossly intact. Cerebellar exam normal. Normal gait. 19:51 Musculoskeletal/extremity: Extremities: grossly normal except: noted in the left dorsal foot: pain, tenderness, noted in the left ankle: pain, tenderness, ROM: intact in all extremities, full active range of motion, full passive range of motion, limited active range of motion due to pain, limited passive range of motion due to pain, Circulation is intact in all extremities. Sensation intact. Vital Signs: 19:54 BP 137 / 90; Pulse 99; Resp 18; Temp 98.9(TE); Pulse Ox 100% on R/A; Weight 144.7 kg aj1 (R); Height 5 ft. 9 in. (175.26 cm) (R); 20:51 BP 135 / 73; Pulse 101; Resp 18; Pulse Ox 97% ; Pain 4/10; cr4 19:54 Body Mass Index 47.11 (144.70 kg, 175.26 cm) aj1 MDM: 19:40 Patient medically screened. jr8 20:22 Data reviewed: vital signs, nurses notes, radiologic studies, plain films, and as a jr8 result, I will discharge patient. Data interpreted: Pulse oximetry: on room air is 100 %. Interpretation: normal. Counseling: I had a detailed discussion with the patient and/or guardian regarding: the historical points, exam findings, and any diagnostic results supporting the discharge/admit diagnosis, radiology results, the need for outpatient follow up, a orthopedic surgeon, to return to the emergency department if symptoms worsen or persist or if there are any questions or concerns that arise at home. 03/12 19:42 Order name: XRAY Ankle LEFT 3 view jr8 03/12 19:42 Order name: XRAY Foot LEFT 3 View jr8 03/12 20:23 Order name: Lacho wrap-joint jr8 Administered Medications: No medications were administered Disposition: 03/12/18 20:22 Discharged to Home. Impression: Sprain of ankle. - Condition is Stable. - Discharge Instructions: Ankle Sprain. - Medication Reconciliation Form, Thank You Letter, Antibiotic Education, Prescription Opioid Use form. - Follow up: Private Physician; When: 5 - 6 days; Reason: Recheck today's complaints, Continuance of care, Re-evaluation by your physician. - Problem is new. - Symptoms have improved. Addendum: 03/15/2018 10:17 Co-signature as Attending Physician, Matthieu Hraris MD. g s Signatures: Dispatcher [employer] EDMS Ana Garcias RN RN aj1 Jeanna Alaniz RN RN cr4 Timbo Trammell PA PA jr8 Matthieu Harris MD MD gs Corrections: (The following items were deleted from the chart) 03/12 20:55 20:22 03/12/2018 20:22 Discharged to Home. Impression: Sprain of ankle. Condition is cr4 Stable. Forms are Medication Reconciliation Form, Thank You Letter, Antibiotic Education, Prescription Opioid Use. Follow up: Private Physician; When: 5 - 6 days; Reason: Recheck today's complaints, Continuance of care, Re-evaluation by your physician. Problem is new. Symptoms have improved. jr8
--- NOTE | 2018-03-12 20:23 | ER ---
Nurse's Notes [facility] Name: Cristina Hancock Age: 38 yrs Sex: Female : 1980 Arrival Date: 03/12/2018 Time: 19:29 Bed 23 Private MD: Diagnosis: Sprain of ankle Presentation: 03/12 19:40 Presenting complaint: Patient states: Patient states she fell in a parking lot at 0100 cr4 am. She heard her left ankle pop. She has taken tylenol, asprin and applied an dalton bandage but continues to have burning, aching pain radiating from left lateral ankle to inner ankle. Care prior to arrival: None. Mechanism of Injury: Fall fell while walking. Trauma event details: Injury occurred: March 13, 2018 Injury occurred at: 01:00. 19:40 Method Of Arrival: Ambulatory cr4 19:40 Acuity: HALE[place] 4 aj1 19:50 Transition of care: patient was not received from another setting of care. Onset of aj1 symptoms was March 12, 2018. Risk Assessment: Do you want to hurt yourself or someone else? Patient reports no desire to harm self or others. Initial Sepsis Screen: Does the patient meet any 2 criteria? No. Patient's initial sepsis screen is negative. Does the patient have a suspected source of infection? No. Patient's initial sepsis screen is negative. Triage Assessment: 19:54 General: Appears in no apparent distress. uncomfortable, Behavior is calm, cooperative, aj1 agitated. Neuro: Level of Consciousness is awake, alert, obeys commands. Cardiovascular: Patient's skin is warm and dry. Respiratory: Airway is patent Respiratory effort is even, unlabored, Respiratory pattern is regular, symmetrical. 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 - Social history:: Smoking status: Patient/guardian denies using tobacco. - Ebola Screening: : Patient negative for fever greater than or equal to 101.5 degrees Fahrenheit, and additional compatible Ebola Virus Disease symptoms Patient denies exposure to infectious person Patient denies travel to an Ebola-affected area in the 21 days before illness onset No symptoms or risks identified at this time. Screenin:52 Abuse screen: Denies threats or abuse. Nutritional screening: No deficits noted. cr4 Tuberculosis screening: No symptoms or risk factors identified. Fall Risk None identified. Assessment: 19:47 General: Appears uncomfortable, obese, well groomed, Behavior is cooperative. Neuro:. cr4 EENT: No deficits noted. Cardiovascular: No deficits noted. Respiratory: No deficits noted. Airway is patent Trachea midline Respiratory effort is even, unlabored. GI: Patient currently denies nausea, pain, vomiting. : Denies burning with urination, pain. Derm: No deficits noted. Musculoskeletal: Tenderness present in left ankle, top of left ankle. Reports pain in left ankle, since 0100. Pain is 10 out of 10 on a pain scale. 20:52 Reassessment: No changes from previously documented assessment. Patient and/or family cr4 updated on plan of care and expected duration. Pain level reassessed. Patient is alert, oriented x 3, equal unlabored respirations, skin warm/dry/pink. Vital Signs: 19:54 BP 137 / 90; Pulse 99; Resp 18; Temp 98.9(TE); Pulse Ox 100% on R/A; Weight 144.7 kg aj1 (R); Height 5 ft. 9 in. (175.26 cm) (R); 20:51 BP 135 / 73; Pulse 101; Resp 18; Pulse Ox 97% ; Pain 4/10; cr4 19:54 Body Mass Index 47.11 (144.70 kg, 175.26 cm) aj1 ED Course: 19:29 Patient arrived in ED. am2 19:35 Timbo Trammell PA is PHCP. jr8 19:35 Matthieu Harris MD is Attending Physician. jr8 19:46 Triage completed. cr4 19:52 Arm band placed on Patient placed in an exam room. aj1 20:17 X-ray completed. Portable x-ray completed in exam room. Patient tolerated procedure az well. 20:23 XRAY Ankle LEFT 3 view In Process Unspecified. EDMS 20:23 XRAY Foot LEFT 3 View In Process Unspecified. EDMS 20:52 Patient has correct armband on for positive identification. Bed in low position. Side cr4 rails up X2. 20:52 No provider procedures requiring assistance completed. Patient did not have IV access cr4 during this emergency room visit. Administered Medications: No medications were administered Outcome: 20:22 Discharge ordered by . yudith 20:52 Discharged to home ambulatory. cr4 20:52 Condition: stable 20:52 Discharge instructions given to patient, Instructed on discharge instructions, follow up and referral plans. Demonstrated understanding of instructions, follow-up care. 20:55 Patient left the ED. cr4 Signatures: Dispatcher [employer] EDAna Robertson RN RN aj1 Jeanna Alaniz RN RN cr4 Timbo Trammell PA PA jr8 Dorothy Nam Araceli az Corrections: (The following items were deleted from the chart) 19:55 19:40 Acuity: HALEIGH 3 cr4 aj1
--- NOTE | 2018-03-12 20:37 | RAD REPORT ---
EXAM DESCRIPTION: RAD - Ankle Left 3 View -03/12/2018 8:23 pm CLINICAL HISTORY: Left ankle pain status post injury FINDINGS: No fracture or dislocation is seen. Large plantar calcaneal spur is present
--- NOTE | 2018-03-12 20:39 | RAD REPORT ---
EXAM DESCRIPTION: RAD - Foot Left 3 View - 03/12/2018 8:23 pm CLINICAL HISTORY: Left Foot pain FINDINGS: No fracture or dislocation is seen.
== END 2018-03-12 20:55 | disposition home or self-care (01) ==
LOC: ER 19:27
DX: S93.402A Sprain of unspecified ligament of left ankle, initial encounter (principal); W18.30XA Fall on same level, unspecified, initial encounter; Y93.01 Activity, walking, marching and hiking; Y92.9 Unspecified place or not applicable; Z88.2 Allergy status to sulfonamides; Z88.8 Allergy status to other drugs, medicaments and biological substances; I10 Essential (primary) hypertension
CPT/HCPCS: 99283

== ENCOUNTER 2018-06-14 16:39 | Emergency (ER) | payer SELFPAY ==
--- NOTE | 2018-06-14 18:17 | RAD REPORT ---
EXAM DESCRIPTION: US - Extrem Venous W Compress [place] - 06/14/2018 6:12 pm CLINICAL HISTORY: SWELLING Bilateral leg edema and swelling. COMPARISON: Extrem Venous W Compress [place] dated 02/13/2018 TECHNIQUE: Real-time sonographic interrogation of the left and right lower extremity deep venous sys tems was performed. FINDINGS: Normal compressibility, flow augmentation, phasic flow and spontaneous flow is identified in both the left and right lower extremity deep venous systems. IMPRESSION: No sonographic evidence of left or right lower extremity deep venous thrombosis.
--- NOTE | 2018-06-14 18:24 | RAD REPORT ---
EXAM DESCRIPTION: RAD - Chest Pa And Lat (2 Views) - 06/14/2018 6:18 pm CLINICAL HISTORY: SWELLING Chest pain. COMPARISON: Chest Single View dated 06/15/2017; Chest Pa And Lat (2 Views) dated 04/25/2017; Chest Si ngle View dated 04/21/2017 FINDINGS: The lungs are clear. The heart is upper limit of normal in size. No displaced fractures. IMPRESSION: No acute or concerning finding suspected.
[2018-06-14] MEDS ORDERED: ASPIRIN 81 MG CHEWABLE TABLET ONE (18:44)
[2018-06-14] MEDS ORDERED: hydroCHLOROthiazide 25 MG TAB ONE (18:45)
--- NOTE | 2018-06-14 18:49 | EDPHYS ---
Physician Documentation [facility] Name: Cristina Hancock Age: 38 yrs Sex: Female : 1980 Arrival Date: 06/14/2018 Time: 16:42 Bed 12 Private MD: None, None ED Physician Matthieu Harris HPI: 06/14 17:48 This 38 yrs old Female presents to ER via Ambulatory with complaints of Feet snw Swelling, Leg Swelling. 17:48 pt c/o bilateral lower ext pain and swelling post driving from [place]. . Onset: The snw symptoms/episode began/occurred suddenly. Severity of symptoms: At their worst the symptoms were severe pt crying in triage. The patient has experienced similar episodes in the past. It is unknown whether or not the patient has recently seen a physician. supposed to take diuretics and does not. 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 - Social history:: Smoking status: Patient/guardian denies using tobacco. - Ebola Screening: : Patient denies exposure to infectious person Patient denies travel to an Ebola-affected area in the 21 days before illness onset. ROS: 17:48 Eyes: Negative for injury, pain, redness, and discharge, ENT: Negative for injury, snw pain, and discharge, Neck: Negative for injury, pain, and swelling, Cardiovascular: Negative for chest pain, palpitations, and edema, Respiratory: Negative for shortness of breath, cough, wheezing, and pleuritic chest pain, Abdomen/GI: Negative for abdominal pain, nausea, vomiting, diarrhea, and constipation, Back: Negative for injury and pain, : Negative for injury, bleeding, discharge, and swelling, Skin: Negative for injury, rash, and discoloration, Neuro: Negative for headache, weakness, numbness, tingling, and seizure. 17:48 Constitutional: Positive for body aches. 17:48 MS/extremity: Positive for decreased range of motion, pain, swelling, of the bilateral lower ext. Exam: 17:50 Head/Face: Normocephalic, atraumatic. Eyes: Pupils equal round and reactive to light, snw extra-ocular motions intact. Lids and lashes normal. Conjunctiva and sclera are non-icteric and not injected. Cornea within normal limits. Periorbital areas with no swelling, redness, or edema. ENT: Nares patent. No nasal discharge, no septal abnormalities noted. Tympanic membranes are normal and external auditory canals are clear. Oropharynx with no redness, swelling, or masses, exudates, or evidence of obstruction, uvula midline. Mucous membranes moist. Neck: Trachea midline, no thyromegaly or masses palpated, and no cervical lymphadenopathy. Supple, full range of motion without nuchal rigidity, or vertebral point tenderness. No Meningismus. Chest/axilla: Normal chest wall appearance and motion. Nontender with no deformity. No lesions are appreciated. 17:50 Respiratory: Lungs have equal breath sounds bilaterally, clear to auscultation and percussion. No rales, rhonchi or wheezes noted. No increased work of breathing, no retractions or nasal flaring. Abdomen/GI: Soft, non-tender, with normal bowel sounds. No distension or tympany. No guarding or rebound. No evidence of tenderness throughout. Back: No spinal tenderness. No costovertebral tenderness. Full range of motion. Skin: Warm, dry with normal turgor. Normal color with no rashes, no lesions, and no evidence of cellulitis. Neuro: Awake and alert, GCS 15, oriented to person, place, time, and situation. Cranial nerves II-XII grossly intact. Motor strength 5/5 in all extremities. Sensory grossly intact. Cerebellar exam normal. Normal gait. 17:50 Constitutional: The patient appears awake, anxious, obese, restless. 17:50 Cardiovascular: Rate: tachycardic. 17:50 Musculoskeletal/extremity: Extremities: grossly normal except: tenderness to bilateral lower ext. 17:50 Psych: Behavior/mood is inappropriate for age, Affect is animated, Patient has no thoughts/intents to harm self or others. Vital Signs: 16:53 BP 176 / 107; Pulse 103; Resp 18; Temp 98.1(TE); Pulse Ox 99% on R/A; Height 5 ft. 9 ss in. (175.26 cm); Pain 10/10; 18:39 BP 116 / 61; Pulse 89; Resp 17; Pulse Ox 98% on R/A; Pain 5/10; mg2 MDM: 17:28 Patient medically screened. snw 18:37 Data reviewed: vital signs, nurses notes. Data interpreted: Pulse oximetry: on room air snw is 99 %. Interpretation: normal. Counseling: I had a detailed discussion with the patient and/or guardian regarding: the historical points, exam findings, and any diagnostic results supporting the discharge/admit diagnosis, the presence of at least one elevated blood pressure reading (>120/80) during this emergency department visit, radiology results, the need for outpatient follow up, to return to the emergency department if symptoms worsen or persist or if there are any questions or concerns that arise at home. Special discussion: I have referred the patient to see his PCP for further evaluation of high blood pressure. Based on the history and exam findings, there is no indication for further emergent testing or inpatient evaluation. I discussed with the patient/guardian the need to see the primary care provider for further evaluation of the symptoms. 06/14 17:26 Order name: Chest Pa And Lat (2 Views) XRAY; Complete Time: 18:30 snw 06/14 17:26 Order name: US Extremity Venous W Compression [place]; Complete Time: 18:19 snw Administered Medications: 18:42 Drug: Aspirin Chewable Tablet 324 mg Route: PO; mg2 19:00 Follow up: Response: No adverse reaction; Medication administered at discharge. mg2 18:42 Drug: Hydrochlorothiazide 25 mg Route: PO; mg2 19:00 Follow up: Response: No adverse reaction; Medication administered at discharge. mg2 Disposition: 06/14/18 18:48 Discharged to Home. Impression: Pain in left leg, Pain in right leg. - Condition is Stable. - Discharge Instructions: Leg Cramps, Musculoskeletal Pain, Cryotherapy, Heat Therapy. - Prescriptions for Hydrochlorothiazide 25 mg Oral Tablet - take 1 tablet by ORAL route once daily .; 30 tablet. - Medication Reconciliation Form, Thank You Letter, Antibiotic Education, Prescription Opioid Use form. - Follow up: Private Physician; When: 2 - 3 days; Reason: Recheck today's complaints, Continuance of care, Re-evaluation by your physician. Follow up: Emergency Department; When: As needed; Reason: Worsening of condition. Addendum: 06/17/2018 19:06 Co-signature as Attending Physician, Matthieu [facility] MD. g s Signatures: Dispatcher [employer] EDMS Gwen Rios, MANAGER PERSONNEL SELECTION-C MANAGER PERSONNEL SELECTION-Csnw Bindu Vera RN RN Matthieu Harris MD MD Daniel Roth RN RN mg2 Corrections: (The following items were deleted from the chart) 06/14 19:18 18:48 06/14/2018 18:48 Discharged to Home. Impression: Pain in left leg; Pain in right mg2 leg. Condition is Stable. Forms are Medication Reconciliation Form, Thank You Letter, Antibiotic Education, Prescription Opioid Use. Follow up: Private Physician; When: 2 - 3 days; Reason: Recheck today's complaints, Continuance of care, Re-evaluation by your physician. Follow up: Emergency Department; When: As needed; Reason: Worsening of condition. snw
--- NOTE | 2018-06-14 18:49 | ER ---
Nurse's Notes [facility] Name: Cristina Hancock Age: 38 yrs Sex: Female : 1980 Arrival Date: 06/14/2018 Time: 16:42 Bed 12 Private MD: None, None Diagnosis: Pain in left leg;Pain in right leg Presentation: 06/14 16:50 Presenting complaint: Patient states: bilateral leg feet swelling and pain that began 1 ss hour ago after driving from [place]. Pt reports that she is supposed to be on medication to get excess fluid off of her body, but is currently unable to pay for medication. Transition of care: patient was not received from another setting of care. Onset of symptoms was June 14, 2018. Risk Assessment: Do you want to hurt yourself or someone else? Patient reports no desire to harm self or others. Initial Sepsis Screen: Does the patient meet any 2 criteria? HR > 90 bpm. No. Patient's initial sepsis screen is negative. Does the patient have a suspected source of infection? No. Patient's initial sepsis screen is negative. Care prior to arrival: None. 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 - Social history:: Smoking status: Patient/guardian denies using tobacco. - Ebola Screening: : Patient denies exposure to infectious person Patient denies travel to an Ebola-affected area in the 21 days before illness onset. Screenin:06 Abuse screen: Denies threats or abuse. Denies injuries from another. Nutritional mg2 screening: No deficits noted. Tuberculosis screening: No symptoms or risk factors identified. Fall Risk Gait- Weak (10 pts.). Assessment: 17:07 General: Appears in no apparent distress. uncomfortable, Behavior is crying. Pain: mg2 Complains of pain in both legs Pain does not radiate. Pain currently is 8 out of 10 on a pain scale. Quality of pain is described as aching, Pain began gradually, 1 hour ago. Is intermittent. Neuro: Level of Consciousness is awake, alert, obeys commands, Oriented to person, place, time, situation. Cardiovascular: Capillary refill < 3 seconds Patient's skin is warm and dry. Respiratory: Airway is patent Respiratory effort is even, unlabored, Respiratory pattern is regular, symmetrical. GI: No signs and/or symptoms were reported involving the gastrointestinal system. : No signs and/or symptoms were reported regarding the genitourinary system. EENT: No signs and/or symptoms were reported regarding the EENT system. Derm: Skin is intact, is healthy with good turgor, Skin is pink, warm \T\ dry. normal. Musculoskeletal: Circulation, motion, and sensation intact. Capillary refill < 3 seconds, Swelling present in both legs. 18:00 Reassessment: patient sent to ultrasound. mg2 Vital Signs: 16:53 BP 176 / 107; Pulse 103; Resp 18; Temp 98.1(TE); Pulse Ox 99% on R/A; Height 5 ft. 9 ss in. (175.26 cm); Pain 10/10; 18:39 BP 116 / 61; Pulse 89; Resp 17; Pulse Ox 98% on R/A; Pain 5/10; mg2 ED Course: 16:42 Patient arrived in ED. mr 16:42 None, None is Private Physician. mr 16:52 Triage completed. ss 16:53 Arm band placed on right wrist. ss 17:06 Daniel Roth, RN is Primary Nurse. mg2 17:08 No provider procedures requiring assistance completed. mg2 17:09 Patient has correct armband on for positive identification. Bed in low position. Door mg2 closed. Warm blanket given. 17:23 Gwen Rios FNP-C is PHCP. snw 17:23 Matthieu Harris MD is Attending Physician. snw 18:12 Ultrasound completed. Patient tolerated poorly. Patient moved to radiology via cy wheelchair. 18:13 US Extremity Venous W Compression [place] In Process Unspecified. EDMS 18:15 Chest Pa And Lat (2 Views) XRAY In Process Unspecified. EDMS 19:17 Patient did not have IV access during this emergency room visit. mg2 Administered Medications: 18:42 Drug: Aspirin Chewable Tablet 324 mg Route: PO; mg2 19:00 Follow up: Response: No adverse reaction; Medication administered at discharge. mg2 18:42 Drug: Hydrochlorothiazide 25 mg Route: PO; mg2 19:00 Follow up: Response: No adverse reaction; Medication administered at discharge. mg2 Outcome: 18:48 Discharge ordered by MD. kaur 19:17 Discharged to home ambulatory. mg2 19:17 Condition: stable 19:17 Discharge instructions given to patient, Instructed on discharge instructions, follow up and referral plans. medication usage, Demonstrated understanding of instructions, follow-up care, medications, Prescriptions given X 1. 19:18 Patient left the ED. mg2 Signatures: Dispatcher [employer] EDMS Gwen Rios, ANNAC LASER BEAM COLOR SCANNER OPERATOR-Gracy Tony Shelby, RN RN Ivana Salgado Michele, RN RN mg2
== END 2018-06-14 19:18 | disposition home or self-care (01) ==
LOC: ER 16:39
DX: M79.605 Pain in left leg (principal); M79.604 Pain in right leg; I10 Essential (primary) hypertension; Z88.2 Allergy status to sulfonamides; Z88.5 Allergy status to narcotic agent; Z88.6 Allergy status to analgesic agent; Z88.8 Allergy status to other drugs, medicaments and biological substances; Z91.048 Other nonmedicinal substance allergy status
CPT/HCPCS: 71046; 93970; 99283

== ENCOUNTER 2018-07-22 16:43 | Emergency (ER) | payer SELFPAY ==
--- OUTSIDE RECORDS SUMMARY | 2018-07-22 16:45 | XMS REPORT ---
:1980 [facility] Address [address] [place] [address] [address]. Nar[address] [place] [address] Care Team Providers Name Role Phone Unavailable Unavailable Unavailable Problems This patient has no known problems. Allergies, Adverse Reactions, Alerts This patient has no known allergies or adverse reactions. Medications This patient has no known medications.
[2018-07-22 19:49] LABS: Bicarbonate 30 mmol/L (21-32); Glucose Level 105 mg/dL (74-106); Potassium 3.1 mmol/L (3.5-5.1); Sodium Level 141 mmol/L (136-145)
[2018-07-22 19:50] LABS: ALT/SGPT 77 U/L (12-78); AST/SGOT 64 U/L (15-37); Albumin 2.9 g/dL (3.4-5.0); Alkaline Phosphatase 97 U/L (45-117); BUN Blood Urea Nitrogen 9 mg/dL (7-18); Bilirubin Direct 0.4 mg/dL (0-0.2); Bilirubin Total 1.3 mg/dL (0.2-1.0); Lipase 126 U/L (73-393); NT PRO-BNP 349 pg/mL (<125); Protein, Total 6.8 g/dL (6.4-8.2)
[2018-07-22 19:51] LABS: Absolute Lymphocytes (CBC) 1.8 K/uL (0.7-4.9); Absolute Monocytes 0.8 K/uL (0.1-1.3); Absolute Neutrophil 6.3 K/uL (1.8-8.0); Basophils % 0.7 % (0-1.3); Eosinophils % 3.3 % (0-4.4); Hematocrit 35.7 % (36.0-45.0); Lymphocytes % 19.1 % (15.3-44.8); MPV 10.3 fL (7.6-11.3); Monocytes % 8.9 % (3.3-12.3); RBC Red Blood Cell Count 4.29 M/uL (3.86-4.86)
[2018-07-22] MEDS ORDERED: FENTANYL CITR 100 MCG/2 ML ONE (19:58)
--- NOTE | 2018-07-22 20:53 | RAD REPORT ---
EXAM DESCRIPTION: US - Extrem Venous W Compress [place] - 07/22/2018 8:20 pm CLINICAL HISTORY: Leg pain and swelling COMPARISON: None. TECHNIQUE: Real-time sonographic evaluation of the bilateral lower extremity common femoral, superfi cial femoral, popliteal and posterior tibial veins was performed. FINDINGS: Normal compressibility, flow augmentation, phasic flow and spontaneous flow are identified in the left and right lower extremity common femoral, superficial femoral, popliteal and posterior t ibial veins. No intraluminal filling defects seen. IMPRESSION: No DVT in either lower extremity.
[2018-07-22] MEDS ORDERED: NA CHLORIDE 0.9% 500 ML ONE (21:56)
--- NOTE | 2018-07-22 22:14 | RAD REPORT ---
EXAM DESCRIPTION: CT - Abdomen Pelvis W Contrast - 07/22/2018 9:46 pm CLINICAL HISTORY: Abdominal pain COMPARISON: None. TECHNIQUE: Biphasic, helical CT imaging of the abdomen and pelvis was performed following 100 ml non -ionic IV contrast. Oral contrast was given. All CT scans are performed using dose optimization technique as appropriate and may include automated exposure control or mA/KV adjustment according to patient size. FINDINGS: No suspicious findings in the lung bases. The liver, spleen, and pancreas show no suspicious findings. Cholecystectomy clips are present. No bi liary tree dilatation. Symmetric renal function is seen with no hydronephrosis or suspicious renal mass. No pyelonephritis o r acute parenchymal process. No bladder abnormalities. No adrenal abnormalities. Small uterus is iden tified ovaries are not clearly defined. No surgical history noted. No adnexal mass. No dilated bowel loops or bowel wall thickening. Peristalsis artifact creates areas of colon narrowin g. No acute appendicitis. No acute GI process identifiable. No free air, free fluid or inflammatory s tranding. No hernia, mass or bulky lymphadenopathy. No suspicious bony findings. IMPRESSION: Contrast enhanced CT abdomen and pelvis showing no significant or suspicious finding. Nonacute findings detailed in the body of the report.
--- NOTE | 2018-07-22 22:28 | EDPHYS ---
Physician Documentation [facility] Name: Cristina Hancock Age: 38 yrs Sex: Female : 1980 Arrival Date: 07/22/2018 Time: 16:51 Bed 19 Private MD: None, None ED Physician Patric Lyman HPI: 07/22 19:00 This 38 yrs old Female presents to ER via Ambulatory with complaints of cp Black/Tarry Stools, Feet Swelling. 19:00 The patient presents to the emergency department with rectal bleeding, dark red blood cp with bowel movement with multiple such episodes. 19:00 Onset: The symptoms/episode began/occurred today. Abdominal pain: described as cp constant, located in the lower abdomen. 19:00 Associated signs and symptoms: Pertinent positives: diarrhea, Pertinent negatives: cp chest pain, constipation, fever, shortness of breath, syncope. 19:00 Severity of symptoms: in the emergency department the symptoms are unchanged. 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 - Social history:: Smoking status: Patient/guardian denies using tobacco. - Ebola Screening: : Patient negative for fever greater than or equal to 101.5 degrees Fahrenheit, and additional compatible Ebola Virus Disease symptoms Patient denies exposure to infectious person Patient denies travel to an Ebola-affected area in the 21 days before illness onset No symptoms or risks identified at this time. ROS: 19:05 Constitutional: Negative for body aches, chills, fever, poor PO intake. cp 19:05 Eyes: Negative for injury, pain, redness, and discharge. cp 19:05 Neck: Negative for pain with movement, pain at rest, stiffness, tenderness. 19:05 Cardiovascular: Positive for edema, Negative for chest pain, palpitations. 19:05 Respiratory: Negative for cough, shortness of breath, wheezing. 19:05 Abdomen/GI: Positive for abdominal pain, black/tarry stool, Negative for vomiting, diarrhea, constipation. 19:05 Back: Negative for pain at rest, pain with movement, radiated pain. 19:05 : Positive for dark colored urine, Negative for hematuria, flank pain, burning with urination. 19:05 Skin: Positive for erythema, of the right ankle and right foot. 19:05 Neuro: Negative for altered mental status, dizziness, headache, weakness. 19:05 All other systems are negative. Exam: 19:10 Constitutional: The patient appears in no acute distress, alert, awake, non-toxic, well cp developed, well nourished, obese. 19:10 Head/Face: Normocephalic, atraumatic. cp 19:10 Eyes: Periorbital structures: appear normal, Conjunctiva: normal, no exudate, no injection, Sclera: no appreciated abnormality, Lids and lashes: appear normal, bilaterally. 19:10 ENT: External ear(s): are unremarkable, Nose: is normal, Mouth: Lips: moist, Oral mucosa: moist, Posterior pharynx: is normal, airway is patent, no erythema, no exudate. 19:10 Chest/axilla: Inspection: normal, Palpation: is normal, no crepitus, no tenderness. 19:10 Cardiovascular: Rate: normal, Rhythm: regular, Edema: ankle edema, that is mild, JVD: is not appreciated. 19:10 Respiratory: the patient does not display signs of respiratory distress, Respirations: normal, no use of accessory muscles, no retractions, no splinting, no tachypnea, labored breathing, is not present, Breath sounds: are clear throughout, no decreased breath sounds, no stridor, no wheezing. 19:10 Abdomen/GI: Inspection: obese Bowel sounds: active, all quadrants, Palpation: soft, in all quadrants, moderate abdominal tenderness, in the right lower quadrant and left lower quadrant, rebound tenderness, is not appreciated, involuntary guarding, is not appreciated. 19:10 Back: pain, is absent, ROM is normal. 19:10 Skin: mild erythema noted right ankle and dorsum right foot. 19:10 Neuro: Orientation: to person, place \T\ time. Mentation: is normal, Cerebellar function: is grossly normal, Motor: moves all fours, strength is normal, Sensation: is normal. 19:10 : Rectal exam: Rectal tone: normal, Stool: watery, yellow, Guaiac testing: results cp were negative for occult blood. Vital Signs: 18:56 BP 141 / 55; Pulse 94; Resp 14; Pulse Ox 98% ; bp 19:08 BP 141 / 55; Pulse 95; Resp 18 S; Pulse Ox 95% on R/A; jd3 19:08 Weight 124.74 kg (R); Height 5 ft. 6 in. (167.64 cm) (R); jd3 20:54 BP 121 / 74; Pulse 83; Resp 18 S; Pulse Ox 100% on R/A; jd3 21:48 BP 105 / 72; Pulse 81; Resp 17 S; Temp 99.0(O); Pulse Ox 100% on R/A; jd3 22:21 BP 105 / 61; Pulse 77; Resp 18 S; Pulse Ox 99% on R/A; jd3 19:08 Body Mass Index 44.39 (124.74 kg, 167.64 cm) jd3 MDM: 18:25 Patient medically screened. 22:25 Data reviewed: vital signs, nurses notes, lab test result(s), radiologic studies, CT cp scan, ultrasound. 22:25 Differential diagnosis: gastritis, diverticulitis, hemorrhoids, GI bleed, DVT, cp cellulitis. Counseling: I had a detailed discussion with the patient and/or guardian regarding: the historical points, exam findings, and any diagnostic results supporting the discharge/admit diagnosis, lab results, radiology results, to return to the emergency department if symptoms worsen or persist or if there are any questions or concerns that arise at home. Response to treatment: the patient's symptoms have markedly improved after treatment, and as a result, I will discharge patient. Special discussion: Based on the patient's Hx, exam, and Dx evaluation, there is no indication for emergent surgery or inpatient Tx. It is understood by the patient/guardian that if the Sx's persist or worsen they need to return immediately for re-evaluation. ED course: VSS. Pain improved with meds. Will discharge to home for continued monitoring. 07/22 18:54 Order name: Basic Metabolic Panel; Complete Time: 20:16 cp 07/22 21:21 Interpretation: Normal except: K 3.1; CA 7.9. cp 07/22 18:54 Order name: CBC with Diff; Complete Time: 20:16 cp 07/22 20:16 Interpretation: Normal except: HGB 11.6; HCT 35.7; MCV 83.2. cp 07/22 18:54 Order name: Creatinine for Radiology; Complete Time: 20:16 cp 07/22 18:54 Order name: Hepatic Function; Complete Time: 20:16 cp 07/22 21:21 Interpretation: Normal except: AST 64; BILIT 1.3; BILID 0.4; ALB 2.9; GLOB 3.9; A/G 0.7.cp 07/22 18:54 Order name: Lipase; Complete Time: 20:16 cp 07/22 18:54 Order name: BNP; Complete Time: 20:16 cp 07/22 21:21 Interpretation: Abnormal: NT PRO-BNP 349. cp 07/22 18:54 Order name: IV Saline Lock; Complete Time: 19:23 cp 07/22 18:54 Order name: Magnesium; Complete Time: 20:16 cp 07/22 18:56 Order name: D-Dimer; Complete Time: 20:16 cp 07/22 21:21 Interpretation: Abnormal: D-DIMER 754. cp 07/22 19:30 Order name: CT Abd/Pelvis - W/Contrast: give oral contrast; Complete Time: 22:23 cp 07/22 19:48 Order name: US Extremity Venous W Compression [place]; Complete Time: 21:20 cp 07/22 21:20 Interpretation: Report reviewed. 07/22 18:54 Order name: Labs collected and sent; Complete Time: 19:23 cp Administered Medications: 19:51 Drug: fentaNYL (PF) 25 mcg Route: IVP; Site: right antecubital; jd3 21:08 Follow up: Response: No adverse reaction jd3 21:51 Drug: NS 0.9% 500 ml Route: IV; Rate: bolus; Site: right antecubital; jd3 22:36 Follow up: Response: No adverse reaction; IV Status: Completed infusion jd3 22:29 Drug: Potassium Effervescent Tablet 50 mEq Route: PO; jd3 22:47 Follow up: Response: No adverse reaction jd3 Disposition: 07/23 07:11 Co-signature as Attending Physician, Patric Lyman MD I agree with the assessment and [facility] plan of care. Disposition: 07/22/18 22:27 Discharged to Home. Impression: Diarrhea, unspecified, Edema, unspecified. - Condition is Stable. - Discharge Instructions: Food Choices to Help Relieve Diarrhea, Adult, Diarrhea, Adult, Edema. - Prescriptions for Bentyl 20 mg Oral Tablet - take 2 tablet by ORAL route every 6 hours As needed; 40 tablet. Keflex 500 mg Oral Capsule - take 1 capsule by ORAL route every 8 hours for 10 days; 30 capsule. Zofran 4 mg Oral Tablet - take 1 tablet by ORAL route every 12 hours As needed; 20 tablet. - Medication Reconciliation Form, Thank You Letter, Antibiotic Education, Prescription Opioid Use form. - Follow up: Private Physician; When: 2 - 3 days; Reason: Recheck today's complaints. - Problem is new. - Symptoms have improved. Signatures: Dispatcher [employer] EDMS Chente Chou RN RN sg Anderson, Corey, MD MD cha Page, Corey PA Robby Barnes cp, RN RN jd3 Corrections: (The following items were deleted from the chart) 07/22 21:21 21:21 Normal except: K 3.1. cp cp 22:28 22:27 07/22/2018 22:27 Discharged to Home. Impression: Diarrhea, unspecified. Condition cp is Stable. Forms are Medication Reconciliation Form, Thank You Letter, Antibiotic Education, Prescription Opioid Use. Follow up: Private Physician; When: 2 - 3 days; Reason: Recheck today's complaints. Problem is new. Symptoms have improved. cp 22:51 22:28 07/22/2018 22:27 Discharged to Home. Impression: Diarrhea, unspecified; Edema, jd3 unspecified. Condition is Stable. Forms are Medication Reconciliation Form, Thank You Letter, Antibiotic Education, Prescription Opioid Use. Follow up: Private Physician; When: 2 - 3 days; Reason: Recheck today's complaints. Problem is new. Symptoms have improved. cp
--- NOTE | 2018-07-22 22:28 | ER ---
Nurse's Notes [facility] Name: Cristina Hancock Age: 38 yrs Sex: Female : 1980 Arrival Date: 07/22/2018 Time: 16:51 Bed 19 Private MD: None, None Diagnosis: Diarrhea, unspecified;Edema, unspecified Presentation: 07/22 16:59 Presenting complaint: Patient states: My urine is darker than normal, my stool is sg darker in color, its dark brown, reports having a swelling in feet that started today. Transition of care: patient was not received from another setting of care. Onset of symptoms was July 22, 2018. Risk Assessment: Do you want to hurt yourself or someone else? Patient reports no desire to harm self or others. Initial Sepsis Screen: Does the patient meet any 2 criteria? No. Patient's initial sepsis screen is negative. Does the patient have a suspected source of infection? No. Patient's initial sepsis screen is negative. Care prior to arrival: None. 16:59 Method Of Arrival: Ambulatory sg 16:59 Acuity: HALEIGH 3 sg Triage Assessment: 18:00 General: Appears in no apparent distress. comfortable, obese, Behavior is cooperative, bp appropriate for age, anxious. Pain: Complains of pain in right foot and left foot. 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 - Social history:: Smoking status: Patient/guardian denies using tobacco. - Ebola Screening: : Patient negative for fever greater than or equal to 101.5 degrees Fahrenheit, and additional compatible Ebola Virus Disease symptoms Patient denies exposure to infectious person Patient denies travel to an Ebola-affected area in the 21 days before illness onset No symptoms or risks identified at this time. Screenin:52 Abuse screen: Denies threats or abuse. Denies injuries from another. Nutritional bp screening: No deficits noted. Tuberculosis screening: No symptoms or risk factors identified. Fall Risk None identified. Assessment: 18:00 General: Appears in no apparent distress. comfortable, obese, Behavior is cooperative, bp appropriate for age, anxious. Pain: Complains of pain in left foot and right foot. Neuro: Level of Consciousness is awake, alert, obeys commands, Oriented to person, place, time, situation, Appropriate for age. Cardiovascular: No deficits noted. Respiratory: Airway is patent Respiratory effort is even, unlabored, Respiratory pattern is regular, symmetrical. GI: Reports bloody stool. 18:00 : No signs and/or symptoms were reported regarding the genitourinary system. EENT: No bp deficits noted. Derm: No deficits noted. Musculoskeletal: Circulation, motion, and sensation intact. Range of motion: intact in all extremities, Swelling present in right foot and left foot. 19:07 Reassessment: Patient appears in no apparent distress at this time. No changes from jd3 previously documented assessment. Patient and/or family updated on plan of care and expected duration. Pain level reassessed. Patient is alert, oriented x 3, equal unlabored respirations, skin warm/dry/pink. pt reporting pain, provider notified, no new orders at this time. 20:52 Reassessment: Patient appears in no apparent distress at this time. Patient and/or jd3 family updated on plan of care and expected duration. Pain level reassessed. Patient is alert, oriented x 3, equal unlabored respirations, skin warm/dry/pink. Patient states feeling better. 21:49 Reassessment: Patient appears in no apparent distress at this time. Patient and/or jd3 family updated on plan of care and expected duration. Pain level reassessed. Patient is alert, oriented x 3, equal unlabored respirations, skin warm/dry/pink. 22:21 Reassessment: Patient appears in no apparent distress at this time. Patient and/or jd3 family updated on plan of care and expected duration. Pain level reassessed. Patient is alert, oriented x 3, equal unlabored respirations, skin warm/dry/pink. Patient states feeling better. 22:47 Reassessment: Patient appears in no apparent distress at this time. Patient and/or jd3 family updated on plan of care and expected duration. Pain level reassessed. Patient is alert, oriented x 3, equal unlabored respirations, skin warm/dry/pink. pt reported understanding of discharge instructions. Patient states feeling better. Vital Signs: 18:56 BP 141 / 55; Pulse 94; Resp 14; Pulse Ox 98% ; bp 19:08 BP 141 / 55; Pulse 95; Resp 18 S; Pulse Ox 95% on R/A; jd3 19:08 Weight 124.74 kg (R); Height 5 ft. 6 in. (167.64 cm) (R); jd3 20:54 BP 121 / 74; Pulse 83; Resp 18 S; Pulse Ox 100% on R/A; jd3 21:48 BP 105 / 72; Pulse 81; Resp 17 S; Temp 99.0(O); Pulse Ox 100% on R/A; jd3 22:21 BP 105 / 61; Pulse 77; Resp 18 S; Pulse Ox 99% on R/A; jd3 19:08 Body Mass Index 44.39 (124.74 kg, 167.64 cm) jd3 ED Course: 16:51 Patient arrived in ED. mr 16:51 None, None is Private Physician. mr 17:00 Triage completed. sg 17:00 Arm band placed on. sg 18:00 Patient has correct armband on for positive identification. Bed in low position. Call bp light in reach. Side rails up X2. 18:24 Patric Wakefield PA is PHCP. cp 18:24 Patric Lyman MD is Attending Physician. cp 18:33 Prashanth Marquis, LUÍS is Primary Nurse. 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 mh5 18:58 Patient has correct armband on for positive identification. Placed in gown. Pulse ox mh5 on. NIBP on. 19:20 Inserted saline lock: 22 gauge in right antecubital area, using aseptic technique. jd3 Blood collected. 20:21 US Extremity Venous W Compression [place] In Process Unspecified. EDMS 21:[address] via wheelchair. nj 21:47 CT Abd/Pelvis - W/Contrast: give oral contrast In Process Unspecified. EDMS 22:46 IV discontinued, intact, bleeding controlled, No redness/swelling at site. Pressure jd3 dressing applied. Administered Medications: 19:51 Drug: fentaNYL (PF) 25 mcg Route: IVP; Site: right antecubital; jd3 21:08 Follow up: Response: No adverse reaction jd3 21:51 Drug: NS 0.9% 500 ml Route: IV; Rate: bolus; Site: right antecubital; jd3 22:36 Follow up: Response: No adverse reaction; IV Status: Completed infusion jd3 22:29 Drug: Potassium Effervescent Tablet 50 mEq Route: PO; jd3 22:47 Follow up: Response: No adverse reaction jd3 Outcome: 22:27 Discharge ordered by MD. cp 22:46 Discharged to home ambulatory. jd3 22:46 Condition: stable 22:46 Discharge instructions given to patient, Instructed on discharge instructions, follow up and referral plans. medication usage, Demonstrated understanding of instructions, follow-up care, medications, Prescriptions given X 3. 22:51 Patient left the ED. jd3 Signatures: Dispatcher [employer] EDMS Chente Chou RN RN isak Slatera, Gracy mr Patric Wakefield PA PA Noé Pérez [facility] Robby Lizarraga RN RN jd3 Peltier, Brian, RN RN bp Corrections: (The following items were deleted from the chart) 18:50 18:49 General: Appears in no apparent distress. comfortable, obese, Behavior is bp cooperative, appropriate for age, anxious, bp 18:50 18:49 Pain: Complains of pain in right foot and left foot bp bp 20:55 20:52 Reassessment: Patient appears in no apparent distress at this time. Patient jd3 and/or family updated on plan of care and expected duration. Pain level reassessed. Patient is alert, oriented x 3, equal unlabored respirations, skin warm/dry/pink. jd3
[2018-07-22] MEDS ORDERED: POTASSIUM 25 MEQ EFFERV TAB ONE (22:36)
== END 2018-07-22 22:51 | disposition home or self-care (01) ==
LOC: ER 16:43
DX: R60.9 Edema, unspecified (principal); I10 Essential (primary) hypertension; Z88.2 Allergy status to sulfonamides; Z88.5 Allergy status to narcotic agent; Z88.8 Allergy status to other drugs, medicaments and biological substances; Z91.048 Other nonmedicinal substance allergy status
CPT/HCPCS: 36415; 74177; 80048; 80076; 83690; 83735; 83880; 85025; 85379; 93970; 96361; 96374; 99285; J3010; Q9967

== ENCOUNTER 2018-07-30 04:38 | Emergency (ER) | payer SELFPAY ==
--- OUTSIDE RECORDS SUMMARY | 2018-07-30 04:40 | XMS REPORT ---
:1980 Author Organization [facility] Address [address] [place] [address] [address] [place] [address] Care Team Providers Name Role Phone Unavailable Unavailable Unavailable Problems This patient has no known problems. Allergies, Adverse Reactions, Alerts This patient has no known allergies or adverse reactions. Medications This patient has no known medications.
[2018-07-30 05:53] LABS: Urine Bacteria <20 /HPF (<20); Urine Culture Reflex Order NOT NEEDED; Urine Mucus HEAVY /HPF (NONE SEEN); Urine RBC NONE SEEN /HPF (NONE SEEN)
[2018-07-30 05:53] LABS: Urine Blood NEGATIVE (NEG); Urine Glucose NEGATIVE (NEG); Urine Protein NEGATIVE (NEG); Urine pH 6.5 (5.0-7.0)
[2018-07-30 06:26] LABS: Protime INR 1.18
[2018-07-30 06:36] LABS: Potassium 3.1 mmol/L (3.5-5.1)
--- NOTE | 2018-07-30 07:01 | ER ---
Nurse's Notes [facility] Name: Cristina Hancock Age: 38 yrs Sex: Female : 1980 Arrival Date: 07/30/2018 Time: 04:40 Bed 7 Private MD: Diagnosis: Generalized abdominal pain;Adverse effect of amphetamines Presentation: 07/30 04:50 Presenting complaint: Patient states: Bruising to lower right and left pelvic areas; lp1 States "I don't know how it happened, but there are a lot of roaches in our apartment so I'm not sure if they may have bit me"; states bruising began 2 days ago but pain worsening; complaint of diarrhea that began yesterday. Transition of care: patient was not received from another setting of care. Onset of symptoms was July 30, 2018. Risk Assessment: Do you want to hurt yourself or someone else? Patient reports no desire to harm self or others. Initial Sepsis Screen: Does the patient meet any 2 criteria? No. Patient's initial sepsis screen is negative. Does the patient have a suspected source of infection? No. Patient's initial sepsis screen is negative. Care prior to arrival: None. 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 - Social history:: Smoking status: Patient/guardian denies using tobacco, Patient uses street drugs, marijuana, Methamphetamine (Meth). - Ebola Screening: : No symptoms or risks identified at this time. Screenin:55 Abuse screen: Denies threats or abuse. Denies injuries from another. Nutritional lp1 screening: No deficits noted. Tuberculosis screening: No symptoms or risk factors identified. Fall Risk None identified. Assessment: 07:12 Reassessment: Patient appears in no apparent distress at this time. No changes from previously documented assessment. Patient and/or family updated on plan of care and expected duration. Pain level reassessed. Patient is alert, oriented x 3, equal unlabored respirations, skin warm/dry/pink. Vital Signs: 04:54 BP 127 / 81; Pulse 105; Resp 18; Temp 99.6(O); Pulse Ox 97% on R/A; Weight 99.79 kg; lp1 Pain 10/10; 07:11 BP 122 / 74; Pulse 90; Resp 16; Pulse Ox 99% ; sv ED Course: 04:40 Patient arrived in ED. es 04:53 Triage completed. lp1 04:53 Arm band placed on left wrist. lp1 04:55 Patient has correct armband on for positive identification. Placed in gown. Pulse ox lp1 on. NIBP on. 05:16 Matthieu Harris MD is Attending Physician. gs 05:45 Urine collected: clean catch specimen, clear. ed1 06:05 Inserted saline lock: 20 gauge in right antecubital area, using aseptic technique. lt1 06:05 Initial lab(s) drawn, by ny, sent to lab. lt1 06:[address] via wheelchair. kw1 06:12 CT Stone Protocol In Process Unspecified. EDMS 06:13 CT completed. Patient tolerated procedure well. Patient moved back from CT. kw1 07:12 No provider procedures requiring assistance completed. IV discontinued, intact, sv bleeding controlled, No redness/swelling at site. Pressure dressing applied. Administered Medications: No medications were administered Outcome: 07:01 Discharge ordered by . gs 07:12 Discharged to home ambulatory. sv 07:12 Condition: stable 07:12 Discharge instructions given to patient, Instructed on discharge instructions, follow up and referral plans. Demonstrated understanding of instructions, follow-up care. 07:12 Patient left the ED. Signatures: Dispatcher [employer] Myrtle Morataya RN RN Fariba Suazo Erika, RN RN ed1 Nighat Salgado RN RN lp1 Matthieu Harris MD MD Naomi Echols kw1 Tejada, Amelie lt1
--- NOTE | 2018-07-30 07:01 | EDPHYS ---
Physician Documentation [facility] Name: Cristina Hancock Age: 38 yrs Sex: Female : 1980 Arrival Date: 07/30/2018 Time: 04:40 Bed 7 Private MD: ED Physician Matthieu Harris HPI: 07/30 05:51 This 38 yrs old Female presents to ER via Ambulatory with complaints of gs BRUSING ON ABD. 05:51 The patient presents with abdominal pain that is diffuse. Onset: The symptoms/episode gs began/occurred at an unknown time. Associated signs and symptoms: Pertinent negatives: nausea and vomiting, blood in stools, chest pain, constipation, diarrhea, fever, vomiting, vomiting blood. The symptoms are described as crampy. Modifying factors: The symptoms are alleviated by nothing, the symptoms are aggravated by nothing. Severity of pain: At its worst the pain was very mild in the emergency department the pain is unchanged. It is unknown whether or not the patient has had similar symptoms in the past. 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 - Social history:: Smoking status: Patient/guardian denies using tobacco, Patient uses street drugs, marijuana, Methamphetamine (Meth). - Ebola Screening: : No symptoms or risks identified at this time. ROS: 05:51 All other systems are negative. gs Exam: 05:51 Head/Face: Normocephalic, atraumatic. Eyes: Pupils equal round and reactive to light, gs extra-ocular motions intact. Lids and lashes normal. Conjunctiva and sclera are non-icteric and not injected. Cornea within normal limits. Periorbital areas with no swelling, redness, or edema. ENT: Nares patent. No nasal discharge, no septal abnormalities noted. Tympanic membranes are normal and external auditory canals are clear. Oropharynx with no redness, swelling, or masses, exudates, or evidence of obstruction, uvula midline. Mucous membranes moist. Neck: Trachea midline, no thyromegaly or masses palpated, and no cervical lymphadenopathy. Supple, full range of motion without nuchal rigidity, or vertebral point tenderness. No Meningismus. Chest/axilla: Normal chest wall appearance and motion. Nontender with no deformity. No lesions are appreciated. Cardiovascular: Regular rate and rhythm with a normal S1 and S2. No gallops, murmurs, or rubs. Normal PMI, no JVD. No pulse deficits. Respiratory: Lungs have equal breath sounds bilaterally, clear to auscultation and percussion. No rales, rhonchi or wheezes noted. No increased work of breathing, no retractions or nasal flaring. Back: No spinal tenderness. No costovertebral tenderness. Full range of motion. MS/ Extremity: Pulses equal, no cyanosis. Neurovascular intact. Full, normal range of motion. Neuro: Awake and alert, GCS 15, oriented to person, place, time, and situation. Cranial nerves II-XII grossly intact. Motor strength 5/5 in all extremities. Sensory grossly intact. Cerebellar exam normal. Normal gait. 05:51 Constitutional: The patient appears alert, awake. 05:51 Abdomen/GI: Inspection: bruising, right lower quadrant and left lower quadrant, Palpation: mild abdominal tenderness, in the right lower quadrant and left lower quadrant. Vital Signs: 04:54 BP 127 / 81; Pulse 105; Resp 18; Temp 99.6(O); Pulse Ox 97% on R/A; Weight 99.79 kg; lp1 Pain 10/10; 07:11 BP 122 / 74; Pulse 90; Resp 16; Pulse Ox 99% ; sv MDM: 05:16 Patient medically screened. 05:51 Differential diagnosis: bowel obstruction, diverticulitis. Data reviewed: vital signs, nurses notes, lab test result(s), radiologic studies. 06:59 Response to treatment: the patient's symptoms have resolved after treatment. 07/30 05:27 Order name: CBC with Diff 07/30 05:27 Order name: Basic Metabolic Panel; Complete Time: 06:49 07/30 05:27 Order name: PT-INR 07/30 05:27 Order name: Urine Microscopic Only; Complete Time: 06:49 gs 07/30 05:45 Order name: Urine Dipstick--Ancillary (enter results); Complete Time: 06:49 ag4 07/30 05:45 Order name: Urine --Ancillary (enter results); Complete Time: 06:49 ag4 07/30 05:27 Order name: CT Stone Protocol 07/30 05:27 Order name: Urine Test (obtain specimen); Complete Time: 05:45 gs 07/30 05:27 Order name: Urine Dipstick-Ancillary (obtain specimen); Complete Time: 05:45 gs Administered Medications: No medications were administered Disposition: 07/30/18 07:01 Discharged to Home. Impression: Generalized abdominal pain, Adverse effect of amphetamines. - Condition is Stable. - Discharge Instructions: Abdominal Pain, Adult. - Medication Reconciliation Form, Thank You Letter, Antibiotic Education, Prescription Opioid Use form. - Follow up: Private Physician; When: 2 - 3 days; Reason: Re-evaluation by your physician. Signatures: Dispatcher [employer] Myrtle Morataya RN RN sv Pena, Laura, RN RN 1 Matthieu Harris MD MD Corrections: (The following items were deleted from the chart) 07:12 07:01 07/30/2018 07:01 Discharged to Home. Impression: Generalized abdominal pain; sv Adverse effect of amphetamines. Condition is Stable. Forms are Medication Reconciliation Form, Thank You Letter, Antibiotic Education, Prescription Opioid Use. Follow up: Private Physician; When: 2 - 3 days; Reason: Re-evaluation by your physician. gs
--- NOTE | 2018-07-30 08:13 | RAD REPORT ---
EXAM DESCRIPTION: CT - Stone Protocol - 07/30/2018 6:55 am CLINICAL HISTORY: Flank pain. ABD PAIN COMPARISON: Abdomen Pelvis W Contrast dated 07/22/2018 TECHNIQUE: Axial images were obtained without oral or IV contrast. Lack of contrast limits solid org an and vascular assessment. The [id number] spans the entirety of the system partially obscuring uppermost abdomen and lung bases. Coronal reformatted images were obtained and reviewed. All CT scans are performed using dose optimization technique as appropriate and may include automated exposure control or mA/KV adjustment according to patient size. FINDINGS: The lower lung granger are clear. Cholecystectomy clips. Imaged portions of the liver and spleen show no suspicious findings on non-contrast imaging. The panc reas and adrenal glands are normal. No pathologic lymphadenopathy in the abdomen or pelvis. No urinary tract stones or obstructive uropathy. No bowel obstruction, free air, free fluid or abscess. Normal appendix noted. No significant bony abnormality. IMPRESSION: No urinary tract stones or obstructive uropathy.
== END 2018-07-30 07:12 | disposition home or self-care (01) ==
LOC: ER 04:38
DX: R10.84 Generalized abdominal pain (principal); T43.625A Adverse effect of amphetamines, initial encounter; I10 Essential (primary) hypertension; Z88.2 Allergy status to sulfonamides; Z88.5 Allergy status to narcotic agent; Z88.8 Allergy status to other drugs, medicaments and biological substances; Z91.048 Other nonmedicinal substance allergy status
CPT/HCPCS: 36415; 74176; 76377; 80048; 81003; 81015; 81025; 85025; 85610